=== PATIENT | male | born 1975 | race Hispanic/Latino ===

== ENCOUNTER 2024-01-19 20:45 | Emergency (ER) | payer SELFPAY ==
[~2024-01-19] VITALS: Ht 172.7 cm; Wt 81.6 kg
[2024-01-19 21:15] VITALS: PULSE 76; RESP 18; TEMP 98
[2024-01-19] MEDS: LIDOCAINE HCL 1% LOCAL INJ 20 ML VIAL INJ STA (21:25)
[2024-01-19] MEDS: TETANUS/DIPHTHERIA TOX ADULT 0.5 ML SYR IM ONE (21:25)
[2024-01-19] MEDS ORDERED: CEPHALEXIN500 MG PO (21:45)
[2024-01-19 21:55] VITALS: BP 113/93; O2SAT 98
== END 2024-01-19 22:00 | disposition home or self-care (01) ==
LOC: ER 20:50
DX: S61.012A Laceration without foreign body of left thumb without damage to nail, initial encounter (principal); W26.8XXA Contact with other sharp object(s), not elsewhere classified, initial encounter; Y92.89 Other specified places as the place of occurrence of the external cause
CPT/HCPCS: 12002; 90471; 90714; 99283; J2003